=== PATIENT | male | born 2000 | race Caucasian/White ===

== ENCOUNTER 2020-01-13 14:49 | Emergency (ER) | payer OTHER ==
[~2020-01-13] VITALS: Ht 188 cm; Wt 97.7 kg
[2020-01-13 15:01] VITALS: BP 126/77
--- NOTE | 2020-01-13 15:05 | PHYS DOC ---
Adult General Chief Complaint Chief Complaint: KNEE INJURY [facility] HPI Patient is a 19 year old male who presents with left knee pain and an abrasion to the right arm that occurred in an accident at work. 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 Complete ROS were reviewed and found to be within normal limits, except as documented in the HPI (CATHI BERTRAND APRN) Allergies Allergies Allergies Coded Allergies Type Severity Reaction Last Updated Verified No Known Drug Allergies 01/13/20 No (ESPERANZA MCBRIDE DO) Physical Exam Physical Exam Constitutional: Well developed, well nourished, no acute distress, non-toxic appearance. [] HENT: Normocephalic, atraumatic Skin: minor abrasion to the left forearm. Extremities: No tenderness, no cyanosis, no clubbing, ROM intact, no edema to the L knee. Patient walked and was able to bear weight on the knee. The patient has negative anterior drawer sign. Neurologic: Alert and oriented X 3, normal motor function, normal sensory function, no focal deficits noted. [] Psychologic: Affect normal, judgement normal, mood normal. [] (CATHI BERTRAND APRN) Current Patient Data Vital Signs Vital Signs Date Time Temp Pulse Resp B/P (MAP) Pulse Ox O2 Delivery O2 Flow Rate FiO2 01/13/20 15:01 98.3 71 16 126/77 (93) 98 Room Air 98.3 (ESPERANZA MCBRIDE DO) EKG EKG [] (CATHI BERTRAND APRN) Radiology/Procedures Radiology/Procedures [] (CATHI BERTRAND APRN) Course & Med Decision Making Course & Med Decision Making Pertinent Labs and Imaging studies reviewed. (See chart for details) Patient is a minor abrasion to the left forearm that needs no medical care. Discussed with the patient that he should put Neosporin on it and keep it clean and wrapped and that way he can keep it from get infected. Patient is able to bear weight on his knee has no bruising or edema to the knee and has full range of motion. Patient does not need an x-ray at this time. Discussed this with the patient. Will discharge patient home. (CATHI BERTRAND APRN) Dragon Disclaimer Dragon Disclaimer This electronic medical record was generated, in whole or in part, using a voice recognition dictation system. (CATHI BERTRAND APRN) Attending Signature I have participated in the care of this patient and I have reviewed and agree with all pertinent clinical information above including history, exam, and recommendations. (ESPERANZA MCBRIDE DO) Departure Departure Impression: Primary Impression: Knee pain Disposition: HOME, SELF-CARE Condition: STABLE Additional Instructions: Thank you for visiting [facility]. We appreciate you trusting us with your care. If any additional problems come up don't hesitate to return to visit us. Please follow up with your primary care provider so they can plan additional care if needed and know about the problem that you had. If symptoms worsen come back to the Emergency Department. Any concerning symptoms that start such as chest pain, shortness of air, weakness or numbness on one side of the b sandie, running high fevers or any other concerning symptoms return to the ER. Please follow-up with your primary care doctor as needed. Problem Qualifiers Primary Impression: Knee pain Chronicity: acute Laterality: left Qualified Codes: M25.562 - Pain in left knee CATHI BERTRAND APRN Jan 13, 2020 15:05 ESPERANZA MCBRIDE DO Jan 13, 2020 17:38
== END 2020-01-13 15:13 | disposition home or self-care (01) ==
LOC: ER 14:49
DX: S50.812A Abrasion of left forearm, initial encounter (principal); M25.561 Pain in right knee; V89.2XXA Person injured in unspecified motor-vehicle accident, traffic, initial encounter; Y93.89 Activity, other specified; Y92.413 State road as the place of occurrence of the external cause; Y99.8 Other external cause status
CPT/HCPCS: 99282